=== PATIENT | male | born 1945 | race Hispanic/Latino ===

== ENCOUNTER → 2019-01-04 | Outpatient (CLI) | payer MEDICARE ==
[~2019-01-04] MED LIST: ASPI-1197 PO; CLOP75TA32 PO; FOLI-114 PO; IBUP-2353 PO; NEBI5TAB8 PO; RANO500T2 PO; SIMV10TA6 PO; TAMS0.4C32 PO; ZOLP5TAB8 PO
== END | disposition home or self-care (01) ==
LOC: RAH 09:45
PROVIDERS: ATTEND Internal Medicine Cardiovascular Disease
DX: I11.9 Hypertensive heart disease without heart failure (principal)
CPT/HCPCS: 93306

== ENCOUNTER 2019-01-19 05:50 | Day surgery (SDC) | payer MEDICARE ==
[2019-01-17 09:49] VITALS: BP 163/70
[2019-01-17 09:53] LABS: CREATININE 1.6 mg/dL (0.5-1.5); POTASSIUM 4.9 mmol/L (3.5-5.1)
[2019-01-17 09:59] LABS: BASOPHILS % (AUTO) 0.6 % (0.0-5.0); EOSINOPHILS % (AUTO) 0.6 % (0.0-8.0); HEMATOCRIT 41.2 % (42-54); LYMPHOCYTES % (AUTO) 26.6 % (21.0-51.0); MEAN CORPUSCULAR HEMOGLOBIN 29.7 pg (27.0-33.0); MEAN CORPUSCULAR HGB CONC 34.1 g/dL (32.0-36.0); MONOCYTES % (AUTO) 9.7 % (3.0-13.0); NEUTROPHILS % (AUTO) 62.5 % (40.0-77.0); PLATELET COUNT (AUTO) 144 K/uL (130-400); RED BLOOD CELL COUNT(AUTO) 4.73 MIL/uL (4.50-6.20); RED CELL DISTRIBUTION WIDTH 15.1 % (11.0-15.5); WHITE BLOOD COUNT (AUTO) 4.6 K/uL (4.8-10.8)
[2019-01-17 10:02] LABS: INR 1.17 (0.85-1.15); PARTIAL THROMBOPLASTIN TIME 32.5 SEC (26.3-35.5); PROTHROMBIN TIME 12.2 SEC (9.6-11.6)
--- NOTE | 2019-01-18 11:02 | NUR ---
Called Fritz MITTAL amd reported wbc 4.6, pt 12.2, INR 1.17, BUN 23, UPSET OPERATOR 1.6, BUN 23. NO NEW ORDERS. PT ON XARELTO instructed to stop two days before.
[~2019-01-19] VITALS: Ht 167.6 cm; Wt 85.6 kg
[2019-01-19] VITALS (9 sets, daily range): BP systolic 119–148; BP diastolic 64–75
[~2019-01-19 05:50] MED LIST changes: +CARB1TAB41 PO; -CLOP75TA32 PO; -FOLI-114 PO; -IBUP-2353 PO; +METO-408 PO; -NEBI5TAB8 PO; +OXYC-165 PO; -RANO500T2 PO; +RIVA20TA PO; +ROPI0.257 PO; +SODIUM CHLORIDE 0.9% 1000ML 1,000 ML IV SCH
--- NOTE | 2019-01-19 07:13 | NUR ---
ASSESSMENT PT HERE FOR PROCEDURE. DENIES ANY COMPLAINTS. USES CANE FOR AMBULATION DUE TO [place]. AT BEDSIDE.
--- NOTE | 2019-01-19 07:15 | NUR ---
PROCEDURE PT TAKEN TO PROCEDURE VIA BED BY [facility] STAFF ANNI STRICKLAND
[2019-01-19] MEDS ORDERED: MIDAZOLAM HCL 1 MG/ML 2ML VIAL ONE ×3 (07:17→08:13)
[2019-01-19] MEDS ORDERED: LIDOCAINE HCL 1% MDV 50ML VIAL ONE (07:17)
[2019-01-19] MEDS ORDERED: BUPIVACAINE/PF 0.25% 30ML VIAL IJ ONE (07:17)
[2019-01-19] MEDS ORDERED: MEPERIDINE-PF 25 MG/ML SYG ONE ×3 (07:18→08:13)
[2019-01-19] MEDS ORDERED: CEFAZOLIN SODIUM 1 GM VIAL ONE (07:18)
[2019-01-19] MEDS ORDERED: OCTYL 2-CYANOACRYLATE 1 EACH TP ONE (08:34)
[2019-01-19] MEDS ORDERED: ACETAMINOPHEN-CODEINE 300/30MG TAB PO PRN ×2 (09:00)
[2019-01-19] MEDS ORDERED: ONDANSETRON HCL 4 MG/2 ML VIAL IV PRN (09:00)
--- NOTE | 2019-01-19 09:25 | NUR ---
PATIENT RETURNED PATIENT BROUGHT BACK FROM [facility] BED BY ANNI MOLINA. PATIENT AWAKE AND ORIENTED. PATIENT DROWSY BUT RESPONDS TO VERBAL COMMANDS. PATIENT'S SPOUSE IN ROOM. DRESSING TO LEFT CHEST WALL IS DRY AND INTACT. ICE PACK APPLIED. PATIENT INSTRUCTED NOT TO LIFT LEFT ARM, PATIENT VERBALIZED UNDERSTANDING.
--- NOTE | 2019-01-19 11:10 | NUR ---
DISCHARGE INSTRUCTIONS DISCHARGE INSTRUCTIONS PROVIDED TO SPOUSE (ALHAJI BACON). FOLLOW UP APPOINTMENTS PROVIDED AND INCISION SITE CARE INSTRUCTIONS EXPLAINED. PATIENT'S VERBALIZED UNDERSTANDING. SPOUSE REQUESTED TO HAVE PRESCRIPTION CALLED INTO PHARMACY. ALL QUESTIONS/CONCERNS ADDRESSED.
--- NOTE | 2019-01-19 11:25 | NUR ---
PRESCRIPTION CALLED IN PATIENT'S SPOUSE REQUESTING TO HAVE PRESCRIPTION CALLED IN. CALLED THE [facility] THAT PATIENT'S SPOUSE REQUESTED ([phone]). CALLED IN PRESCRIPTION FOR DOXYCYCLINE 100MG PO Q12HRS X 5DAYS (NO REFILLS) ORDERED BY DR VARGAS.
--- NOTE | 2019-01-19 14:00 | NUR ---
PATIENT DISCHARGED PATIENT ASSISTED TO GET DRESSED BY TYREE HONG. PATIENT AAOX3, RESPIRATIONS UNLABORED, DENIES ANY PAIN, AND VITAL SIGNS ARE STABLE. PRESSURE DRESSING AND ICE PACK REMOVED FROM LEFT CHEST WALL. OPSITE IN PLACE WITH 4X4 GAUZE. DRESSING IS DRY AND INTACT, NO DRAINAGE OR BLEEDING NOTED. MILD SWELLING NOTED TO OPERATIVE AREA. INSTRUCTED PATIENT AND PATIENT'S SPOUSE TO KEEP OP-SITE IN PLACE AND TO KEEP CLEAN AND DRY UNTIL SEEN BY DR. VARGAS AT FOLLOW UP APPOINTMENT, BOTH VERBALIZED UNDERSTANDING. PATIENT DISCHARGED FROM FACILITY VIA WHEELCHAIR BY TYREE VALE AND ASSISTED INTO PROVATE VEHICLE DRIVEN BY SPOUSE.
== END 2019-01-19 14:00 | disposition home or self-care (01) ==
LOC: DAH 05:50
PROVIDERS: ATTEND Internal Medicine Cardiovascular Disease
DX: Z45.010 Encounter for checking and testing of cardiac pacemaker pulse generator [battery] (principal); I25.10 Atherosclerotic heart disease of native coronary artery without angina pectoris; I73.9 Peripheral vascular disease, unspecified; I10 Essential (primary) hypertension; I48.0 Paroxysmal atrial fibrillation; M19.90 Unspecified osteoarthritis, unspecified site; Z79.82 Long term (current) use of aspirin; Z79.899 Other long term (current) drug therapy; Z79.01 Long term (current) use of anticoagulants; Z95.5 Presence of coronary angioplasty implant and graft; Z87.01 Personal history of pneumonia (recurrent); Z98.890 Other specified postprocedural states; Z87.891 Personal history of nicotine dependence; Z83.3 Family history of diabetes mellitus; Z82.5 Family history of asthma and other chronic lower respiratory diseases
CPT/HCPCS: 33228; 36415; 80048; 85025; 85610; 85730; 93005; A4215; A4216; A4221; A4222; A4223 ×3; C1785; J0690; J2175 ×3; J2250 ×3; J3490 ×2; J7030; 99156; 99157

== ENCOUNTER → 2019-11-16 | Outpatient (CLI) | payer MEDICARE ==
[~2019-11-16] MED LIST changes: -SIMV10TA6 PO; +SIMV10TA97 PO; -SODIUM CHLORIDE 0.9% 1000ML 1,000 ML IV SCH
== END | disposition home or self-care (01) ==
LOC: RAH 10:31
PROVIDERS: ATTEND Psychiatry & Neurology Neurology
DX: M47.816 Spondylosis without myelopathy or radiculopathy, lumbar region (principal); M48.061 Spinal stenosis, lumbar region without neurogenic claudication; K59.00 Constipation, unspecified; I70.0 Atherosclerosis of aorta; I71.4 Abdominal aortic aneurysm, without rupture; Q25.46 Tortuous aortic arch
CPT/HCPCS: 72131

== ENCOUNTER → 2020-07-14 | Outpatient (CLI) | payer MEDICARE | END | disposition home or self-care (01) | LOC: SHCH 14:08 | PROVIDERS: ATTEND Internal Medicine Cardiovascular Disease | DX: R00.1 Bradycardia, unspecified (principal); R06.00 Dyspnea, unspecified | CPT/HCPCS: 93306; 93356 ==

== ENCOUNTER → 2020-07-17 | Outpatient (CLI) | payer MEDICARE ==
[~2020-07-17] VITALS: Ht 172.7 cm; Wt 84.4 kg
[~2020-07-17] MED LIST changes: +REGADENOSON 0.4 MG/5 ML PF SYG IVP SCH
== END | disposition home or self-care (01) ==
LOC: SHCH 07:53
PROVIDERS: ATTEND Internal Medicine Cardiovascular Disease
DX: I48.0 Paroxysmal atrial fibrillation (principal); R06.00 Dyspnea, unspecified; R00.1 Bradycardia, unspecified
CPT/HCPCS: 78452; 93017; 96374; A9500 ×2; J2785

== ENCOUNTER 2020-12-29 09:49 | Observation (INO) | payer MEDICARE ==
[~2020-12-29] VITALS: Ht 172.7 cm; Wt 79.8 kg
[~2020-12-29 09:49] MED LIST changes: -REGADENOSON 0.4 MG/5 ML PF SYG IVP SCH
[2020-12-29 10:33] LABS: BASOPHILS % (AUTO) 0.5 % (0.0-5.0); EOSINOPHILS % (AUTO) 0.2 % (0.0-8.0); HEMATOCRIT 38.8 % (42-54); LYMPHOCYTES % (AUTO) 25.2 % (21.0-51.0); MEAN CORPUSCULAR HEMOGLOBIN 24.7 pg (27.0-33.0); MEAN CORPUSCULAR HGB CONC 30.9 g/dL (32.0-36.0); MEAN CORPUSCULAR VOLUME 79.8 fL (79-99); MONOCYTES % (AUTO) 8.3 % (3.0-13.0); NEUTROPHILS % (AUTO) 65.6 % (40.0-77.0); PLATELET COUNT (AUTO) 148 K/uL (130-400); RED BLOOD CELL COUNT(AUTO) 4.86 MIL/uL (4.50-6.20); RED CELL DISTRIBUTION WIDTH 21.2 % (11.0-15.5); WHITE BLOOD COUNT (AUTO) 4.2 K/uL (4.8-10.8)
[2020-12-29 10:46] VITALS: BP 163/88
[2020-12-29 10:51] LABS: CREATININE 1.5 mg/dL (0.5-1.5); POTASSIUM 4.1 mmol/L (3.5-5.1)
[2020-12-29 10:55] LABS: ALBUMIN 3.8 g/dL (3.5-5.0); INR 1.14 (0.85-1.15); PROTHROMBIN TIME 12.3 SEC (9.6-11.6); TOTAL PROTEIN, SERUM 7.2 g/dL (6.0-8.3)
[2020-12-29 10:56] LABS: PARTIAL THROMBOPLASTIN TIME 30.4 SEC (26.3-35.5)
[2020-12-29 11:15] LABS: B-TYPE NATRIURETIC PEPTIDE 34 pg/mL (0-100)
[2020-12-29] MEDS ORDERED: NITROGLYCERIN 1GM OINT 1 INCH/1GM TD ONE (12:00)
[2020-12-29] MEDS ORDERED: ASPIRIN 325MG TAB PO ONE (12:00)
[2020-12-29 12:39] VITALS: BP 154/85
[2020-12-29 15:18] VITALS: BP 165/95
[2020-12-29] MEDS ORDERED: MELA1TAB21 PO (15:31)
[2020-12-29] MEDS ORDERED: MULT-1333 PO (15:31)
[2020-12-29] MEDS ORDERED: ACET-2247 PO (15:31)
[2020-12-29] MEDS ORDERED: FERR-72 PO (15:31)
[2020-12-29 17:00] VITALS: BP 166/87
[2020-12-29] MEDS ORDERED: ACETAMINOPHEN 325 MG TAB PO PRN (17:30)
[2020-12-29] MEDS ORDERED: MELATONIN PO PRN (17:30)
[2020-12-29] MEDS ORDERED: PYRIDOXINE HCL PO PRN (17:30)
[2020-12-29 19:05] LABS: CREATINE KINASE, TOTAL 58 U/L (21-232); MYOGLOBIN 121 ng/mL (10-92); TROPONIN I < 0.04 ng/mL (0.00-0.06)
[2020-12-29 19:15] VITALS: BP 135/83
[2020-12-29] MEDS ORDERED: RIVAROXABAN 20 MG TABLET PO SCH ×2 (20:00→21:00)
[2020-12-29] MEDS ORDERED: TAMSULOSIN HCL 0.4 MG CAP.ER.24H PO SCH (21:00)
[2020-12-29] MEDS ORDERED: **HM**(Metoprolol Succinate 12.5 MG PO SCH (21:00)
[2020-12-29] MEDS ORDERED: SIMVASTATIN 10 MG TABLET PO SCH (21:00)
[2020-12-29] MEDS: CARBIDOPA-LEVODOPA 25-100 TAB PO SCH (21:46)
[2020-12-29] MEDS: ROPINIROLE HCL 0.25 MG TABLET PO SCH (21:51)
[2020-12-30] VITALS: BP 122/68
[2020-12-30 03:36] VITALS: BP 144/84
[2020-12-30] MEDS ORDERED: ONDANSETRON 4MG INJ ONE (03:47)
[2020-12-30 05:37] LABS: BASOPHILS % (AUTO) 0.2 % (0.0-5.0); EOSINOPHILS % (AUTO) 0.5 % (0.0-8.0); HEMATOCRIT 39.4 % (42-54); LYMPHOCYTES % (AUTO) 24.3 % (21.0-51.0); MEAN CORPUSCULAR HEMOGLOBIN 24.5 pg (27.0-33.0); MEAN CORPUSCULAR HGB CONC 30.2 g/dL (32.0-36.0); MEAN CORPUSCULAR VOLUME 81.2 fL (79-99); MONOCYTES % (AUTO) 12.5 % (3.0-13.0); PLATELET COUNT (AUTO) 124 K/uL (130-400); RED BLOOD CELL COUNT(AUTO) 4.85 MIL/uL (4.50-6.20); WHITE BLOOD COUNT (AUTO) 4.2 K/uL (4.8-10.8)
[2020-12-30 06:06] LABS: ALANINE AMINOTRANSFERASE 8 U/L (12-78); ALBUMIN 3.6 g/dL (3.5-5.0); ASPARTATE AMINOTRANSFERASE 17 U/L (10-37); BILIRUBIN,TOTAL 1.4 mg/dL (0.2-1.0); CARBON DIOXIDE 26 mmol/L (21-32); CHLORIDE 110 mmol/L (101-111); CREATINE KINASE, TOTAL 69 U/L (21-232); CREATININE 1.5 mg/dL (0.5-1.5); GLOMERULAR FILTR. RATE CALC 48 mL/min (>60); GLUCOSE,RANDOM 92 mg/dL (70-105); POTASSIUM 4.2 mmol/L (3.5-5.1); SODIUM SERUM 144 mmol/L (136-145); TOTAL PROTEIN, SERUM 6.8 g/dL (6.0-8.3); TROPONIN I < 0.04 ng/mL (0.00-0.06); UREA NITROGEN, BLOOD 20 mg/dL (7-18)
[2020-12-30 06:36] LABS: MYOGLOBIN 172 ng/mL (10-92)
[2020-12-30 07:30] VITALS: BP 100/44
[2020-12-30] MEDS ORDERED: FERROUS SULFATE 325 MG TABLET.DR PO SCH (09:00)
[2020-12-30] MEDS ORDERED: MULTIVITAMIN TABLET PO SCH (09:00)
[2020-12-30] MEDS ORDERED: ASPIRIN 81MG CHEW TAB PO SCH (09:00)
[2020-12-30] MEDS: CARBIDOPA-LEVODOPA 25-100 TAB PO SCH (09:07)
[2020-12-30] MEDS: ROPINIROLE HCL 0.25 MG TABLET PO SCH (09:11)
[2020-12-30 11:00] VITALS: BP 128/75
== END 2020-12-30 13:00 | disposition home or self-care (01) ==
LOC: EDH 09:49 → 3CH 13:23
PROVIDERS: ADMIT Internal Medicine Infectious Disease; ATTEND Internal Medicine Infectious Disease
DX: I25.119 Atherosclerotic heart disease of native coronary artery with unspecified angina pectoris (principal); I44.0 Atrioventricular block, first degree; I10 Essential (primary) hypertension; D64.9 Anemia, unspecified; E78.5 Hyperlipidemia, unspecified; G20 Parkinson's disease; N40.0 Benign prostatic hyperplasia without lower urinary tract symptoms; I73.9 Peripheral vascular disease, unspecified; F41.1 Generalized anxiety disorder; I48.0 Paroxysmal atrial fibrillation; R00.1 Bradycardia, unspecified; R53.81 Other malaise; Z79.01 Long term (current) use of anticoagulants; Z95.1 Presence of aortocoronary bypass graft; Z98.61 Coronary angioplasty status; Z79.899 Other long term (current) drug therapy; Z98.890 Other specified postprocedural states
CPT/HCPCS: 36415 ×2; 71045; 80053 ×2; 82550 ×2; 83735; 83874 ×2; 83880; 84484 ×3; 85025 ×2; 85610; 85730; 93005; 99285; G0378 ×23; J2405

== ENCOUNTER → 2021-05-06 | Outpatient (CLI) | payer MEDICARE ==
[~2021-05-06] MED LIST changes: +ACET-2247 PO; +FERR-72 PO; +MELA1TAB21 PO; +MULT-1333 PO; -OXYC-165 PO; -ZOLP5TAB8 PO
== END | disposition home or self-care (01) ==
LOC: RAH 11:06
PROVIDERS: ATTEND Internal Medicine Nephrology
DX: G31.9 Degenerative disease of nervous system, unspecified (principal); I67.82 Cerebral ischemia; R29.810 Facial weakness
CPT/HCPCS: 70450

== ENCOUNTER → 2023-11-09 | Outpatient (CLI) | payer MEDICARE ==
[~2023-11-09] MED LIST changes: +ACET-2079 PO; -ASPI-1197 PO; -FERR-72 PO; +LORA10TA7 PO; -MELA1TAB21 PO; -MULT-1333 PO; +PANT40TA PO; +ROPI0.2535 PO; -ROPI0.257 PO; -SIMV10TA97 PO; -TAMS0.4C32 PO; +TRAM50TA4 PO
== END | disposition home or self-care (01) ==
LOC: RAH 12:29
PROVIDERS: ATTEND Internal Medicine Nephrology
DX: R13.10 Dysphagia, unspecified (principal)
CPT/HCPCS: 74230; 92611

== ENCOUNTER 2024-01-28 06:53 | Inpatient (IN) | payer MEDICARE ==
[~2024-01-28] VITALS: Ht 165.1 cm; Wt 56.7 kg
[2024-01-28] VITALS (8 sets, daily range): BP systolic 106–141; BP diastolic 55–73; PULSE 89–104; RESP 20–22; TEMP 97.9–99.7; O2SAT 95–99
[~2024-01-28 06:53] MED LIST changes: -ACET-2079 PO; -PANT40TA PO; -RIVA20TA PO; -TRAM50TA4 PO
[2024-01-28] MEDS: IpraTROPium/alBUTERol SULFATE 3 ML SOLUTION IH ONE (07:12)
[2024-01-28 07:15] LABS: ABG BASE EXCESS -0.2 mmol/L (-2.0-3.0); ABG HCO3 23.6 mmol/L (21.0-28.0); ABG OXYGEN SATURATION 87.9 % (94.0-98.0); ABG PCO2 36 mmHg (35-48); CARBON MONOXIDE 0.1 % (0.5-1.5); PO2, ARTERIAL BG 54.6 mmHg (83.0-108.0); VENT MODE, BG NRBM (ROOM AIR)
[2024-01-28 07:20] LABS: EOSINOPHILS # (AUTO) 0.01 K/uL (0.00-0.70); EOSINOPHILS % (AUTO) 0.3 % (0.0-8.0); HEMATOCRIT 35.9 % (42-54); IMMATURE GRANULOCYTE ABSOLUTE 0.02 K/uL (0-1); LYMPHOCYTES # (AUTO) 0.1 K/uL (1.0-4.8); LYMPHOCYTES % (AUTO) 4.1 % (21.0-51.0); MEAN CORPUSCULAR HEMOGLOBIN 30.7 pg (27.0-33.0); MEAN CORPUSCULAR HGB CONC 32.9 g/dL (32.0-36.0); MEAN CORPUSCULAR VOLUME 93.5 fL (79-99); MONOCYTES # (AUTO) 0.4 K/uL (0.1-1.0); MONOCYTES % (AUTO) 11.5 % (3.0-13.0); NEUTROPHILS # (AUTO) 2.8 K/uL (1.8-7.7); NEUTROPHILS % (AUTO) 83.5 % (40.0-77.0); PLATELET COUNT (AUTO) 120 K/uL (130-400); RED BLOOD CELL COUNT(AUTO) 3.84 MIL/uL (4.50-6.20); RED CELL DISTRIBUTION WIDTH 13.6 % (11.0-15.5); WHITE BLOOD COUNT (AUTO) 3.4 K/uL (4.8-10.8)
[2024-01-28 08:20] LABS: B-TYPE NATRIURETIC PEPTIDE 134 pg/mL (0-100)
[2024-01-28 08:26] LABS: INFLUENZA TYPE A Negative For Type A (NEGATIVE); INFLUENZA TYPE B Negative For Type B (NEGATIVE)
[2024-01-28] MEDS ORDERED: RIVA20TA PO (08:50)
[2024-01-28] MEDS ORDERED: PANT40TA54 PO (08:50)
[2024-01-28 09:07] LABS: SARS-CoV-2, RNA, NAAT POSITIVE SARS CoV-2 (NEGATIVE)
[2024-01-28 09:21] LABS: CREATININE 1.3 mg/dL (0.5-1.3); POTASSIUM 3.8 mmol/L (3.5-5.1)
[2024-01-28 09:25] LABS: ALBUMIN 3.2 g/dL (3.5-5.0); BILIRUBIN,TOTAL 0.7 mg/dL (0.2-1.0)
[2024-01-28] MEDS: AZITHROMYCIN 500MG+NS 250ML 250 ML IVPB ONE (09:50)
[2024-01-28] MEDS: 0.9% NACL 500ML IV.SOLN 500 ML IV SCH (09:50)
[2024-01-28] MEDS: cefTRIAXone 1G VIAL IVPB ONE (09:50)
[2024-01-28] MEDS ORDERED: POTASSIUM CHLORIDE 20MEQ/100ML 100 ML IV PRN (10:30)
[2024-01-28] MEDS ORDERED: POTASSIUM CHLORIDE 10% ELIXIR 20 MEQ/15 ML UDCUP PO PRN (10:30)
[2024-01-28] MEDS ORDERED: acetaMINOPHEN 325 MG TAB PO PRN (10:30)
[2024-01-28] MEDS ORDERED: ONDANSETRON 4MG INJ IVP PRN (10:30)
[2024-01-28] MEDS ORDERED: ZOSYN 3.375GM +NS 50ML IV SCH (10:30)
[2024-01-28] MEDS ORDERED: KCL 20 MEQ ERTAB PO PRN (10:30)
[2024-01-28] MEDS ORDERED: Solu-medROL 40MG VIAL IVP SCH (14:00)
[2024-01-28] MEDS: DOXYCYCLINE 100MG+NS 250ML 250 ML IV SCH (14:29)
[2024-01-28] MEDS: ropiNIRole HCL 0.25 MG TABLET PO SCH (14:30)
[2024-01-28] MEDS: Solu-medROL 40MG VIAL IVP SCH (14:30)
[2024-01-28] MEDS: acetaMINOPHEN 650 MG/20.3 ML UDCUP PEG PRN (14:31)
[2024-01-28] MEDS: ZOSYN 3.375GM +NS 50ML IV SCH (17:59)
[2024-01-28] MEDS: IpraTROPium/alBUTERol SULFATE 3 ML SOLUTION IH SCH (18:21)
[2024-01-28] MEDS: SODIUM CHLORIDE 3% FOR INHALATION 4 ML/AMP VIAL.NEB IH ONE ×2 (18:21→23:02)
[2024-01-28] MEDS: metOPROLol sucCINATE 25 MG TAB.SR.24H PO SCH (21:45)
[2024-01-28] MEDS: RIVAROXABAN 20 MG TABLET PO SCH (21:45)
[2024-01-29] VITALS (15 sets, daily range): BP systolic 110–157; BP diastolic 53–81; PULSE 72–98; RESP 16–22; TEMP 97.9–102.2; O2SAT 97–100
[2024-01-29 03:52] LABS: MEAN CORPUSCULAR HEMOGLOBIN 30.9 pg (27.0-33.0); MEAN CORPUSCULAR HGB CONC 32.2 g/dL (32.0-36.0); RED BLOOD CELL COUNT(AUTO) 3.75 MIL/uL (4.50-6.20); RED CELL DISTRIBUTION WIDTH 13.7 % (11.0-15.5); WHITE BLOOD COUNT (AUTO) 5.2 K/uL (4.8-10.8)
[2024-01-29 04:04] LABS: INR 1.3 (0.85-1.15); PROTHROMBIN TIME 13.8 SEC (9.6-11.6)
[2024-01-29 04:05] LABS: PARTIAL THROMBOPLASTIN TIME 37.6 SEC (26.3-35.5)
[2024-01-29 04:22] LABS: ALBUMIN 2.8 g/dL (3.5-5.0); BILIRUBIN,TOTAL 0.6 mg/dL (0.2-1.0); CREATININE 1.2 mg/dL (0.5-1.3); MAGNESIUM 1.8 mg/dL (1.80-2.40); POTASSIUM 4.6 mmol/L (3.5-5.1); TOTAL PROTEIN, SERUM 6.6 g/dL (6.0-8.3)
[2024-01-29] MEDS: LORATAdine 10 mg 10 MG TABLET PO SCH (08:53)
[2024-01-29] MEDS: LANSOPRAZOLE 15 MG SOLU TAB PEG SCH (08:54)
[2024-01-30] VITALS (18 sets, daily range): BP systolic 99–134; BP diastolic 51–86; PULSE 87–128; RESP 16–23; TEMP 97–98.9; O2SAT 95–100
[2024-01-30 04:31] LABS: HEMATOCRIT 37.2 % (42-54); MEAN CORPUSCULAR HEMOGLOBIN 30.8 pg (27.0-33.0); MEAN CORPUSCULAR HGB CONC 33.3 g/dL (32.0-36.0); MEAN CORPUSCULAR VOLUME 92.5 fL (79-99); RED BLOOD CELL COUNT(AUTO) 4.02 MIL/uL (4.50-6.20); RED CELL DISTRIBUTION WIDTH 13.4 % (11.0-15.5); WHITE BLOOD COUNT (AUTO) 5.3 K/uL (4.8-10.8)
[2024-01-30 04:38] LABS: MAGNESIUM 1.7 mg/dL (1.80-2.40); POTASSIUM 4.3 mmol/L (3.5-5.1)
[2024-01-30] MEDS: acetylCYSTeine 20% 200MG/ML 4ML VIAL IH SCH (18:38)
[2024-01-30] MEDS: guaiFENesin-DM 200/20MG 10ML PO PRN (21:18)
[2024-01-30] MEDS: traMADol HCL 50 MG TABLET GT PRN (21:19)
[2024-01-31] VITALS (15 sets, daily range): BP systolic 102–146; BP diastolic 56–89; PULSE 71–125; RESP 17–21; TEMP 97–99.6; O2SAT 94–98
[2024-01-31 03:48] LABS: HEMATOCRIT 34.1 % (42-54); MEAN CORPUSCULAR HEMOGLOBIN 30.2 pg (27.0-33.0); MEAN CORPUSCULAR HGB CONC 33.1 g/dL (32.0-36.0); MEAN CORPUSCULAR VOLUME 91.2 fL (79-99); RED BLOOD CELL COUNT(AUTO) 3.74 MIL/uL (4.50-6.20); RED CELL DISTRIBUTION WIDTH 13.5 % (11.0-15.5); WHITE BLOOD COUNT (AUTO) 4.8 K/uL (4.8-10.8)
[2024-01-31 04:00] LABS: CREATININE 0.9 mg/dL (0.5-1.3); MAGNESIUM 1.6 mg/dL (1.80-2.40); POTASSIUM 4.5 mmol/L (3.5-5.1)
[2024-01-31] MEDS: MAGNESIUM 2GM PREMIX 50ML 50 ML IV PRN (07:41)
[2024-01-31] MEDS: metoPROLOL tartRATE 1 MG/ML 5ML VIAL IV ONE (09:34)
[2024-01-31] MEDS: IpraTROPium 0.5 MG/2.5 ML INH IH SCH (11:26)
[2024-01-31] MEDS: metOPROLol sucCINATE 25 MG TAB.SR.24H PO ONE (13:00)
[2024-01-31] MEDS ORDERED: metoPROLOL tartRATE 1 MG/ML 5ML VIAL IV PRN (18:00)
[2024-01-31] MEDS ORDERED: BIOFREEZE PO PRN (21:00)
[2024-01-31] MEDS: ZINC OXIDE OINT 30GM TUBE TP SCH (22:30)
[2024-01-31] MEDS: PHARMACY COMMUNICATION MISC SCH (22:30)
[2024-02-01] VITALS (12 sets, daily range): BP systolic 114–162; BP diastolic 72–103; PULSE 77–119; RESP 18–20; TEMP 97.8–98.6; O2SAT 93–98
[2024-02-01 05:29] LABS: HEMATOCRIT 37.1 % (42-54); MEAN CORPUSCULAR HEMOGLOBIN 30.8 pg (27.0-33.0); MEAN CORPUSCULAR HGB CONC 34.2 g/dL (32.0-36.0); RED BLOOD CELL COUNT(AUTO) 4.12 MIL/uL (4.50-6.20); RED CELL DISTRIBUTION WIDTH 13.4 % (11.0-15.5); WHITE BLOOD COUNT (AUTO) 6.5 K/uL (4.8-10.8)
[2024-02-01 05:53] LABS: MAGNESIUM 2.3 mg/dL (1.80-2.40); POTASSIUM 4.4 mmol/L (3.5-5.1)
[2024-02-01] MEDS: metoPROLOL tartRATE 25 MG TAB PO SCH (10:53)
[2024-02-02] VITALS (11 sets, daily range): BP systolic 117–172; BP diastolic 57–90; PULSE 72–93; RESP 18–20; TEMP 97.6–98.7; O2SAT 95–98
[2024-02-02 04:59] LABS: HEMATOCRIT 34.4 % (42-54); MEAN CORPUSCULAR HEMOGLOBIN 29.8 pg (27.0-33.0); MEAN CORPUSCULAR HGB CONC 33.4 g/dL (32.0-36.0); MEAN CORPUSCULAR VOLUME 89.1 fL (79-99); RED BLOOD CELL COUNT(AUTO) 3.86 MIL/uL (4.50-6.20); RED CELL DISTRIBUTION WIDTH 13.4 % (11.0-15.5); WHITE BLOOD COUNT (AUTO) 3.9 K/uL (4.8-10.8)
[2024-02-02 05:15] LABS: CREATININE 0.8 mg/dL (0.5-1.3); MAGNESIUM 1.8 mg/dL (1.80-2.40); POTASSIUM 4.2 mmol/L (3.5-5.1)
[2024-02-02 17:22] LABS: APPEARANCE,URINE CLEAR (CLEAR); BILIRUBIN,URINE NEGATIVE (NEGATIVE); COLOR,URINE LIGHT-YELLOW (YELLOW); GLUCOSE, URINE (UA) NEGATIVE (NEGATIVE); KETONES,URINE NEGATIVE (NEGATIVE); LEUKOCYTE ESTERASE ,URINE NEGATIVE Leu/uL (NEGATIVE); NITRATE,URINE NEGATIVE (NEGATIVE); OCCULT BLOOD,URINE NEGATIVE (NEGATIVE); PROTEIN,URINE 10 mg/dL (NEGATIVE); UROBILINOGEN,URINE 0.2 mg/dL (0.2-1.0)
[2024-02-02 17:24] LABS: ADD UA MICROSCOPIC YES
[2024-02-02 17:25] LABS: RBC,URINE 0-1 /HPF (0-1); SQUAMOUS EPITHELIAL CELL,UR RARE /HPF (0-2); WBC,URINE 0-1 /HPF (0-1)
[2024-02-03] VITALS (17 sets, daily range): BP systolic 104–178; BP diastolic 47–96; PULSE 72–95; RESP 18–20; TEMP 97.4–98.8; O2SAT 87–96
[2024-02-03 04:58] LABS: HEMATOCRIT 35.9 % (42-54); MEAN CORPUSCULAR HEMOGLOBIN 29.6 pg (27.0-33.0); MEAN CORPUSCULAR HGB CONC 33.1 g/dL (32.0-36.0); MEAN CORPUSCULAR VOLUME 89.3 fL (79-99); RED BLOOD CELL COUNT(AUTO) 4.02 MIL/uL (4.50-6.20); RED CELL DISTRIBUTION WIDTH 13.2 % (11.0-15.5); WHITE BLOOD COUNT (AUTO) 4.1 K/uL (4.8-10.8)
[2024-02-03 05:20] LABS: ALBUMIN 2.4 g/dL (3.5-5.0); TOTAL PROTEIN, SERUM 6.5 g/dL (6.0-8.3)
[2024-02-03 16:24] LABS: INR 1.11 (0.85-1.15); PROTHROMBIN TIME 11.9 SEC (9.6-11.6)
[2024-02-03 16:25] LABS: PARTIAL THROMBOPLASTIN TIME 30.2 SEC (26.3-35.5)
[2024-02-04 03:43] VITALS: BP 107/65; PULSE 77; RESP 21; TEMP 97.5
[2024-02-04 06:19] VITALS: PULSE 72; RESP 19; O2SAT 94
[2024-02-04 07:00] VITALS: BP 118/56; PULSE 77; RESP 18; TEMP 97.8
[2024-02-04 08:13] VITALS: O2SAT 99
[2024-02-04 10:59] VITALS: PULSE 75; RESP 19
[2024-02-04 11:00] VITALS: BP 127/67; PULSE 80; RESP 20; TEMP 97.9
[2024-02-04] MEDS: LACTULOSE 20 GM/30 ML UDCUP PO SCH (11:28)
== END 2024-02-04 12:57 | DRG 871 ==
LOC: EDH 06:53 → EDHIP 10:02 → 4AH 10:47 → 2DH 01-31 09:51 → 4AH 01-31 10:43
PROVIDERS: ADMIT Internal Medicine Infectious Disease; ATTEND Internal Medicine Infectious Disease
PROC: 05HY33Z Insertion of Infusion Device into Upper Vein, Percutaneous Approach (ICD-10-PCS; principal; 2024-02-03)
DX: A41.89 Other specified sepsis (principal); J12.82 Pneumonia due to coronavirus disease 2019; U07.1 COVID-19; J96.01 Acute respiratory failure with hypoxia; J69.0 Pneumonitis due to inhalation of food and vomit; G20.A1 Parkinson's disease without dyskinesia, without mention of fluctuations; I10 Essential (primary) hypertension; I48.91 Unspecified atrial fibrillation; E78.00 Pure hypercholesterolemia, unspecified; E86.0 Dehydration; N40.0 Benign prostatic hyperplasia without lower urinary tract symptoms; I72.4 Aneurysm of artery of lower extremity; I72.3 Aneurysm of iliac artery; I25.10 Atherosclerotic heart disease of native coronary artery without angina pectoris; R13.12 Dysphagia, oropharyngeal phase; I73.9 Peripheral vascular disease, unspecified; I48.0 Paroxysmal atrial fibrillation; Z79.01 Long term (current) use of anticoagulants; Z79.899 Other long term (current) drug therapy; Z82.49 Family history of ischemic heart disease and other diseases of the circulatory system; Z83.3 Family history of diabetes mellitus; Z93.1 Gastrostomy status; Z95.1 Presence of aortocoronary bypass graft; Z95.5 Presence of coronary angioplasty implant and graft
CPT/HCPCS: 36415; 36556; 36600; 71045; 76376; 80048; 80053; 81001; 82140; 82306; 82435; 82607; 82803; 82947; 82948; 83605; 83735; 83880; 84132; 84145; 84295; 84484; 85018; 85025; 85027; 85610; 85730; 87040; 87071; 87205; 87426; 87635; 87804; 93005; 93306; 93356; 93971; 94640; 94664; 96365; 96368; G0378; J0456; J0696; J2543; J2919; J3475; J3490; J7608; A4600

== ENCOUNTER 2024-02-04 18:57 | Emergency (ER) | payer MEDICARE ==
[~2024-02-04] VITALS: Ht 172.7 cm; Wt 59.4 kg
[~2024-02-04 18:57] MED LIST changes: -METO-408 PO; +PANT40TA54 PO; +RIVA20TA PO
[2024-02-04 19:24] LABS: ABG BASE EXCESS -1.7 mmol/L (-2.0-3.0); ABG OXYGEN SATURATION 93.3 % (94.0-98.0); ABG PCO2 26 mmHg (35-48); ABG PH 7.505 (7.350-7.450); CARBON MONOXIDE 0.2 % (0.5-1.5); DEVICE COMMENT NRB 100; HHb 6.7; PO2, ARTERIAL BG 66.8 mmHg (83.0-108.0); VENT MODE, BG RR RN MARIAH (ROOM AIR)
[2024-02-04] MEDS: dexaMETHasone SOD PHOSPHATE 4 MG/ML 1ML VIAL IVP ONE (19:27)
[2024-02-04 19:28] LABS: HEMATOCRIT 34.7 % (42-54); LYMPHOCYTES # (AUTO) 0.5 K/uL (1.0-4.8); LYMPHOCYTES % (AUTO) 7.1 % (21.0-51.0); MEAN CORPUSCULAR HEMOGLOBIN 29.9 pg (27.0-33.0); MEAN CORPUSCULAR VOLUME 87.8 fL (79-99); MONOCYTES # (AUTO) 0.6 K/uL (0.1-1.0); MONOCYTES % (AUTO) 8.3 % (3.0-13.0); NEUTROPHILS # (AUTO) 6.1 K/uL (1.8-7.7); NEUTROPHILS % (AUTO) 83.2 % (40.0-77.0); PLATELET COUNT (AUTO) 170 K/uL (130-400); RED BLOOD CELL COUNT(AUTO) 3.95 MIL/uL (4.50-6.20); RED CELL DISTRIBUTION WIDTH 13.4 % (11.0-15.5); WHITE BLOOD COUNT (AUTO) 7.3 K/uL (4.8-10.8)
[2024-02-04 19:41] LABS: POTASSIUM 3.9 mmol/L (3.5-5.1)
[2024-02-04] MEDS ORDERED: acetaMINOPHEN 325 MG TAB PO PRN (21:00)
[2024-02-04] MEDS ORDERED: ondanSETRON 4MG INJ IVP PRN (21:00)
[2024-02-04] MEDS ORDERED: IOHEXOL 350 MG/ML 100ML INFUS..BTL IV ONE (21:47)
[2024-02-04] MEDS: HEParin 5,000 UNIT VIAL SQ SCH (22:12)
[2024-02-04] MEDS: ZOSYN 3.375GM +NS 50ML IV SCH (22:12)
[2024-02-04] MEDS: INSULIN humuLIN R 100 UNIT/ML 3ML SQ SCH (22:23)
[2024-02-05 01:26] VITALS: RESP 19; O2SAT 98
[2024-02-05 06:04] LABS: SARS-CoV-2, RNA, NAAT POSITIVE SARS CoV-2 (NEGATIVE)
[2024-02-05 10:26] VITALS: BP 115/56; PULSE 88; RESP 18; TEMP 98.6; O2SAT 100
== END 2024-02-05 11:04 | disposition short-term general hospital (02) ==
LOC: EDH 18:57 → UNDOADMIN 20:48 → EDHIP 20:48 → UNDODISIN 02-06 11:04
DX: U07.1 COVID-19 (principal); J12.82 Pneumonia due to coronavirus disease 2019; I10 Essential (primary) hypertension; K21.9 Gastro-esophageal reflux disease without esophagitis; G20.A1 Parkinson's disease without dyskinesia, without mention of fluctuations; Z79.899 Other long term (current) drug therapy
CPT/HCPCS: 99285; 96365; 71275; 71045; 96375; 82947; 82550; 84484; 80048; 82803; 83880; 85025; 87040; 83605 ×2; 36415; 93005; 36600; 82435; 84132; 84295; 85018; 82948 ×2; 87635; 96366; 96372; J1815; J1100; J2543 ×2; J1644 ×2; Q9967; G0378